=== PATIENT | female | born 1995 | race Two or more races ===

== ENCOUNTER 2019-04-23 10:44 | Emergency (ER) | payer OTHER ==
[~2019-04-23] VITALS: Ht 165.1 cm; Wt 63.5 kg
== END 2019-04-23 13:43 | disposition home or self-care (01) ==
LOC: ER 10:46
DX: S93.401A Sprain of unspecified ligament of right ankle, initial encounter (principal); X50.1XXA Overexertion from prolonged static or awkward postures, initial encounter; Y93.89 Activity, other specified; Y92.89 Other specified places as the place of occurrence of the external cause; Y99.8 Other external cause status
CPT/HCPCS: 73610; A4663